=== PATIENT | female | born 1995 | race Caucasian/White ===

== ENCOUNTER 2022-03-20 09:20 | Outpatient (CLI) | payer BC | END 2022-03-20 09:21 | disposition home or self-care (01) | LOC: SCSMRI 09:20 | PROVIDERS: ATTEND Family Medicine | DX: R79.89 Other specified abnormal findings of blood chemistry (principal); R89.9 Unspecified abnormal finding in specimens from other organs, systems and tissues | CPT/HCPCS: 70553 ==